=== PATIENT | male | born 1965 | race Caucasian/White ===

== ENCOUNTER 2016-12-02 05:40 | Emergency (ER) | payer OTHER ==
[~2016-12-02] VITALS: Ht 190.5 cm; Wt 120.5 kg
[~2016-12-02 05:40] MED LIST: FLUO-1 PO
[2016-12-02 05:47] VITALS: BP 140/96; PULSE 91; RESP 18; TEMP 98.2; O2SAT 98
[2016-12-02] MEDS ORDERED: QUET50XR PO (05:57)
[2016-12-02] MEDS ORDERED: TRAZ150T75 PO (05:57)
[2016-12-02] MEDS ORDERED: BACT800T5 PO (06:03)
[2016-12-02] MEDS ORDERED: KETO2CRE TOPICAL (06:03)
[2016-12-02] MEDS ORDERED: DOXY100C PO (06:03)
--- NOTE | 2016-12-02 06:13 | PD ---
HPI Chief Complaint: Injury Time Seen by Provider: 05:45 Travel History International Travel<30 days: No Contact w/Intl Traveler<30days: No Traveled to known affect area: No History of Present Illness HPI The patient is a 51-year-old diabetic who states he scraped his left heel yesterday. In 2012 he had some cellulitis from a similar injury and he wants to have antibiotics now to prevent another episode of this. He states he has not had a tetanus shot in over 10 years. He also points out some lesions that have been going on for months on his arms with some lesions on his hands. PFSH Past Medical History Bipolar Disorder: Yes Anxiety: Yes Cancer: No Cardiovascular Problems: No Diminished Hearing: No Endocrine: No Gastrointestinal Disorders: No Genitourinary: No Hepatitis: Yes (HEP C) Hypertension: Yes Immune Disorder: No Musculoskeletal: No Neurologic: No Psychiatric: Yes (DAILY PANIC ATTACKS) Reproductive: No Respiratory: Yes Tetanus Vaccination: > 5 Years Influenza Vaccination: Yes Past Surgical History Tonsillectomy: Yes Social History Alcohol Use: Yes (OCCAS. BEER, WINE) Tobacco Use: Yes (/2 PPD) Substance Use: No Allergies-Medications (Allergen,Severity, Reaction): Coded Allergies: Codeine (Verified Allergy, Severe, Nausea/Vomiting, 12/02/16) Reported Meds & Prescriptions Reported Meds & Active Scripts Active Bactrim DS (Sulfamethoxazole-Trimethoprim) 800-160 Mg Tab 1 Tab PO BID Doxycycline Hyclate 100 Mg Cap 100 Mg PO BID Ketoconazole Topical 2% Cream 1 Applic TOPICAL TID Reported Trazodone (Trazodone HCl) 150 Mg Tab 150 Mg PO HS Seroquel XR (Quetiapine Fumarate) 50 Mg Tab 50 Mg PO TID Prozac (Fluoxetine HCl) 10 Mg Cap 10 Mg PO DAILY Review of Systems Except as stated in HPI: all other systems reviewed are Neg Physical Exam Narrative GENERAL: Well-nourished, well-developed patient. SKIN: Warm and dry. There are multiple lesions of tenia corporis on the arms, one has a classic ringworm appearance. The skin shows an abrasion with no evidence of infection yet on the left heel. This will be cleaned and bandaged. HEAD: Normocephalic. EYES: No scleral icterus. No injection or drainage. NECK: Supple, trachea midline. No JVD or lymphadenopathy. CARDIOVASCULAR: Regular rate and rhythm without murmurs, gallops, or rubs. RESPIRATORY: Breath sounds equal bilaterally. No accessory muscle use. GASTROINTESTINAL: Abdomen soft, non-tender, nondistended. MUSCULOSKELETAL: No cyanosis, or edema. BACK: Nontender without obvious deformity. No CVA tenderness. Data Data Last Documented VS Vital Signs Date Time Temp Pulse Resp B/P Pulse Ox O2 Delivery O2 Flow Rate FiO2 12/02/16 05:47 98.2 91 18 140/96 98 Orders Sulfamet-Trimeth Ds 800-160 Mg (Bactrim (12/02/16 06:15) Doxycycline (Vibramycin) (12/02/16 06:15) [facility] Medical Decision Making Medical Screen Exam Complete: Yes Emergency Medical Condition: Yes Medical Record Reviewed: Yes Differential Diagnosis Abrasion left heel, tenia corporis, cellulitis, lymphadenitis, allergic reaction Narrative Course The patient has an abrasion of his left heel as well as tenia corporis Plan: The patient be given ketoconazole, Septra DS and doxycycline. He should follow-up with his primary care physician next week. Diagnosis Primary Impression: Abrasion of left foot Additional Impression: Tinea corporis Additional Instructions: As we discussed, discontinue alcohol because alcohol reduces your resistance to infections both fungal as on your arm and bacterial has on your heel. Soak twice daily in warm water and elevate your heel above your heart at night. Scripts Sulfamethoxazole-Trimethoprim (Bactrim DS)800-160 Mg Tab1 Tab PO BID #20 TAB Ref 0 Prov:Dilip Stanley MD 12/02/16 Doxycycline Hyclate 100 Mg Arb240 Mg PO BID #20 CAP Ref 0 Prov:Dilip Stanley MD 12/02/16 Ketoconazole Topical 2% Cream1 Applic TOPICAL TID #15 GM Ref 0 Prov:Dilip Stanley MD 12/02/16 Disposition: 01 DISCHARGE HOME Condition: Stable Dilip Stanley MD Dec 02, 2016 06:13
[2016-12-02] MEDS ORDERED: DOXYCYCLINE HYCLATE 100 MG TAB PO ONE (06:15)
[2016-12-02] MEDS ORDERED: DOXYCYCLINE HYCLATE 100 MG CAP PO ONE (06:15)
[2016-12-02] MEDS ORDERED: TETANUS/DIPHTHERIA TOXOID ADULT 0.5 ML VIAL IM ONE (06:15)
[2016-12-02] MEDS ORDERED: SULFAMETHOXAZOLE-TRIMETHOPRIM DS 800-160 MG TAB PO ONE (06:15)
== END 2016-12-02 06:36 | disposition home or self-care (01) ==
LOC: PHED 05:40
DX: S90.812A Abrasion, left foot, initial encounter (principal); I10 Essential (primary) hypertension; B19.20 Unspecified viral hepatitis C without hepatic coma; Z23 Encounter for immunization; W45.8XXA Other foreign body or object entering through skin, initial encounter; W22.8XXA Striking against or struck by other objects, initial encounter; Y93.9 Activity, unspecified
CPT/HCPCS: 90471; 90714

== ENCOUNTER 2017-10-05 19:41 | Emergency (ER) | payer SELFPAY ==
[~2017-10-05 19:41] MED LIST changes: +BACT800T5 PO; +DOXY100C PO; +KETO2CRE TOPICAL; +QUET50XR PO; +TRAZ150T75 PO
--- NOTE | 2017-10-05 19:59 | PD ---
HPI Chief Complaint: OD/ Ingestion Time Seen by Provider: 19:50 Travel History International Travel<30 days: No Contact w/Intl Traveler<30days: No Traveled to known affect area: No History of Present Illness HPI patient would only speak in "hypotheticals"...so he may have "hypothetically bought some street heroin", but truly unsure of what he purchased. after used he doesn't recall what happened. roommates/friends called 911 when he was poorly responsive. iv established by ems and given narcan for a total 0.8mg...patient is now completely alert and oriented. pmhx: htn all:codeine gave him rash PFSH Past Medical History Bipolar Disorder: Yes Anxiety: Yes Cancer: No Cardiovascular Problems: No Diminished Hearing: No Endocrine: No Gastrointestinal Disorders: No Genitourinary: No Hepatitis: Yes (HEP C, NON DETECTABLE IN BLOOD S/P [facility]) Hypertension: Yes Immune Disorder: No Musculoskeletal: No Neurologic: No Psychiatric: Yes (DAILY PANIC ATTACKS) Reproductive: No Respiratory: Yes Past Surgical History Tonsillectomy: Yes Social History Alcohol Use: Yes (OCCAS. BEER, WINE) Tobacco Use: Yes (/2 PPD) Substance Use: No Allergies-Medications (Allergen,Severity, Reaction): Coded Allergies: codeine (Unverified Allergy, Severe, Nausea/Vomiting, 10/05/17) Reported Meds & Prescriptions Reported Meds & Active Scripts Active Reported [place] Carbonate 300 Mg Tab 300 Mg PO TID Trazodone (Trazodone HCl) 150 Mg Tablet 150 Mg PO HS Review of Systems ROS Limitations: Intoxication, Altered Mental Status Except as stated in HPI: all other systems reviewed are Neg General / Constitutional: No: Fever Eyes: No: Visual changes HENT: No: Headaches Cardiovascular: No: Chest Pain or Discomfort Respiratory: No: Shortness of Breath Gastrointestinal: No: Abdominal Pain Genitourinary: No: Dysuria Musculoskeletal: No: Pain Skin: No Rash Neurologic: No: Weakness Psychiatric: No: Depression Endocrine: No: Polydipsia Hematologic/Lymphatic: No: Easy Bruising Physical Exam Exam Limitations: Intoxication Narrative GENERAL: SKIN: Warm and dry. HEAD: Atraumatic. Normocephalic. EYES: Pupils equal and round. No scleral icterus. No injection or drainage. ENT: No nasal bleeding or discharge. Mucous membranes pink and moist. NECK: Trachea midline. No JVD. CARDIOVASCULAR: Regular rate and rhythm. RESPIRATORY: No accessory muscle use. Clear to auscultation. Breath sounds equal bilaterally. GASTROINTESTINAL: Abdomen soft, non-tender, nondistended. MUSCULOSKELETAL: Extremities without clubbing, cyanosis, or edema. No obvious deformities. NEUROLOGICAL: Awake and alert. No obvious cranial nerve deficits. Motor grossly within normal limits. Five out of 5 muscle strength in the arms and legs. Normal speech. currently after narcan given, will observe PSYCHIATRIC: Appropriate mood and affect; insight and judgment normal. Data Data Last Documented VS Vital Signs Date Time Temp Pulse Resp B/P (MAP) Pulse Ox O2 Delivery O2 Flow Rate FiO2 10/05/17 19:56 16 99 Room Air Orders Orders Complete Blood Count With Diff (10/05/17 19:50) Basic Metabolic Panel (Bmp) (10/05/17 19:50) Creatine Kinase (Cpk) (10/05/17 19:50) Iv Access Insert/Monitor (10/05/17 19:50) Sodium Chlor 0.9% 1000 Ml Inj (Ns 1000 M (10/05/17 20:00) Labs Laboratory Tests Test 10/05/17 19:55 White Blood Count 5.2 TH/MM3 Red Blood Count 3.42 MIL/MM3 Hemoglobin 11.2 GM/DL Hematocrit 32.7 % Mean Corpuscular Volume 95.6 FL Mean Corpuscular Hemoglobin 32.6 PG Mean Corpuscular Hemoglobin Concent 34.1 % Red Cell Distribution Width 15.1 % Platelet Count 226 TH/MM3 Mean Platelet Volume 7.5 FL Neutrophils (%) (Auto) 36.9 % Lymphocytes (%) (Auto) 47.1 % Monocytes (%) (Auto) 10.9 % Eosinophils (%) (Auto) 2.7 % Basophils (%) (Auto) 2.4 % Neutrophils # (Auto) 1.9 TH/MM3 Lymphocytes # (Auto) 2.4 TH/MM3 Monocytes # (Auto) 0.6 TH/MM3 Eosinophils # (Auto) 0.1 TH/MM3 Basophils # (Auto) 0.1 TH/MM3 CBC Comment DIFF FINAL Differential Comment Blood Urea Nitrogen 3 MG/DL Creatinine 0.64 MG/DL Random Glucose 136 MG/DL Calcium Level 8.4 MG/DL Sodium Level 131 MEQ/L Potassium Level 3.8 MEQ/L Chloride Level 100 MEQ/L Carbon Dioxide Level 20.5 MEQ/L Anion Gap 11 MEQ/L Estimat Glomerular Filtration Rate 130 ML/MIN Total Creatine Kinase 105 U/L MDM Medical Decision Making Medical Screen Exam Complete: Yes Emergency Medical Condition: Yes Medical Record Reviewed: Yes Differential Diagnosis electrolyte abnl v anemia v accidental opiate od Narrative Course patient has been observed for approx 2 hours, no repeat difficulty with lethargy or somnolence. Diagnosis Primary Impression: accidental opiate overdose Referrals: [facility] Patient Instructions: General Instructions, Opioid Overdose (DC) Disposition: 01 DISCHARGE HOME Condition: Stable Mateusz Stanton MD Oct 05, 2017 19:59
[2017-10-05] MEDS ORDERED: SODIUM CHLOR 0.9% 1000 ML INJ 1,000 ML IV ONE (20:00)
[2017-10-05] MEDS ORDERED: LITH300T3 PO (20:07)
[2017-10-05] MEDS ORDERED: TRAZ1TAB14 PO (20:07)
[2017-10-05 20:18] LABS: AUTOMATED NEUTROPHIL # 1.9 TH/MM3 (1.8-7.7); BASOPHIL # 0.1 TH/MM3 (0-0.2); BASOPHIL % 2.4 % (0.0-2.0); EOSINOPHIL # 0.1 TH/MM3 (0-0.4); EOSINOPHIL % 2.7 % (0.0-4.0); HEMATOCRIT 32.7 % (39.0-51.0); HEMO FLAGS DIFF FINAL; LYMPH % 47.1 % (9.0-44.0); LYMPHOCYTE # 2.4 TH/MM3 (1.0-4.8); MEAN CELL VOLUME 95.6 FL (80.0-100.0); MEAN CORPUSCULAR HEMOGLOBIN 32.6 PG (27.0-34.0); MEAN CORPUSCULAR HGB CONC 34.1 % (32.0-36.0); MONO % 10.9 % (0.0-8.0); NEUT % 36.9 % (16.0-70.0); PLATELET COUNT 226 TH/MM3 (150-450); RED BLOOD COUNT 3.42 MIL/MM3 (4.50-5.90); RED CELL DISTRIBUTION WIDTH 15.1 % (11.6-17.2); WHITE BLOOD COUNT 5.2 TH/MM3 (4.0-11.0)
[2017-10-05 20:31] LABS: BICARBONATE 20.5 MEQ/L (21.0-32.0); POTASSIUM 3.8 MEQ/L (3.5-5.1)
[2017-10-05 22:31] VITALS: BP 119/75; PULSE 100; RESP 16; O2SAT 98
== END 2017-10-05 23:22 | disposition home or self-care (01) ==
LOC: NEPC 19:41
DX: T40.2X1A Poisoning by other opioids, accidental (unintentional), initial encounter (principal); R41.82 Altered mental status, unspecified; F31.9 Bipolar disorder, unspecified; F41.9 Anxiety disorder, unspecified; B19.20 Unspecified viral hepatitis C without hepatic coma; I10 Essential (primary) hypertension
CPT/HCPCS: 80048; 82550; 85025; 96360; 96361; 99284; J7030